=== PATIENT | female | born 1950 | race African-American/Black ===

== ENCOUNTER 2020-07-26 00:27 | Inpatient (IN) | payer MEDICARE ==
[~2020-07-26] VITALS: Ht 160 cm; Wt 54.4 kg
[2020-07-26] MEDS ORDERED: ACETAMINOPHEN 650 MG SUPP.RECT. ONE (00:33)
[2020-07-26] MEDS ORDERED: IV NORMAL SALINE 1000ML BAG 1,000 ML IV ONE (00:45)
[2020-07-26] MEDS ORDERED: ACETAMINOPHEN 650 MG SUPP.RECT. PR ONE (00:45)
[2020-07-26] MEDS ORDERED: cefTRIAXone IV Push 1 GM VIAL. IVP ONE (00:45)
[2020-07-26 01:15] LABS: BASO # 0.1 x10^3/uL (0.0-0.2); BASO % 1 % (0-3); EOS % 0 % (0-3); HEMATOCRIT 28.7 % (36.0-47.0); HEMOGLOBIN 9.3 g/dL (12.0-15.5); LYMPH # 0.6 x10^3/uL (1.0-4.8); LYMPH % 4 % (24-48); MEAN CORPUSCULAR HEMOGLOBIN 29 pg (25-35); MEAN CORPUSCULAR HGB CONC 33 g/dL (31-37); MEAN CORPUSCULAR VOLUME 90 fL (79-100); MONO # 0.7 x10^3/uL (0.0-1.1); MONO % 5 % (0-9); NEUT # 12.5 x10^3/uL (1.8-7.7); NEUT % 90 % (31-73); PLATELET COUNT 358 x10^3/uL (140-400); RED BLOOD COUNT 3.17 x10^6/uL (3.50-5.40); RED CELL DISTRIBUTION WIDTH 17.7 % (11.5-14.5); WHITE BLOOD COUNT 13.9 x10^3/uL (4.0-11.0)
--- NOTE | 2020-07-26 01:16 | RAD ---
XR CHEST 1V History: Reason: sob / Spl. Instructions: / History: Comparison: None. Findings: No consolidation or pleural effusion. Normal heart size. No pneumothorax. Impression: 1. No acute cardiopulmonary process. Electronically signed by: Son Fierro DO (07/26/2020 1:14 AM) [facility] [place]
[2020-07-26 01:17] LABS: BILIRUBIN,URINE NEGATIVE (NEG); CLARITY,URINE CLEAR; COLOR,URINE YELLOW; NITRITE,URINE NEGATIVE (NEG); PROTEIN,URINE 100 mg/dL (NEG-TRACE)
[2020-07-26] MEDS ORDERED: GABA600T7 PO (01:23)
[2020-07-26] MEDS ORDERED: GABA800T5 PO (01:23)
[2020-07-26 01:24] LABS: BACTERIA,URINE MANY /HPF (0-FEW); WBC,URINE >40 /HPF (0-4)
[2020-07-26] MEDS ORDERED: KETOROLAC 30 MG/ML VIAL. IVP ONE (02:45)
--- NOTE | 2020-07-26 02:48 | ED.ADGEN ---
General Adult EDM: Chief Complaint: ALTERED MENTAL STATUS HPI: HPI: Patient is a 70 year old female who presents to the Emergency Room complaining of fever and confusion for two days. Daughter states that yesterday she started becoming more quiet and then by tonight she wouldn't answer questions at all. She has been very confused. They noticed she was having fevers this evening. Patient has no complaints. They deny any SOB, chest pain, abdominal pain, vomiting, diarrhea. Review of Systems: Review of Systems: Complete ROS is negative unless otherwise documented in HPI Current Medications: Current Medications Medications (Trade) Dose Ordered Sig/Bri Start Time Stop Time Status Last Admin Dose Admin Acetaminophen (Tylenol Supp) 650 mg STK-MED ONCE 07/26/20 00:33 07/26/20 00:34 DC Ceftriaxone Sodium (Rocephin) 1 gm 1X ONCE 07/26/20 00:45 07/26/20 00:46 DC 07/26/20 02:39 1 GM Sodium Chloride 1,000 ml @ 1,000 mls/hr 1X ONCE 07/26/20 00:45 07/26/20 01:44 DC 07/26/20 01:28 1,000 MLS/HR Allergies: Allergies: Allergies Coded Allergies Type Severity Reaction Last Updated Verified No Known Drug Allergies 04/27/20 No Physical Exam: PE: General: Awake, alert, NAD. Well Nourished, well hydrated. Cooperative HEENT: Atraumatic, EOMI, PERRL, airway patent, moist oral mucosa Neck: Supple, trachea midline Respiratory: CTA bilaterally, normal effort, no wheezing/crackles CV: tachycardic, no murmur, cap refill <2 GI: Soft, nondistended, nontender, no masses MSK: No obvious deformities Skin: Warm, dry, intact Neuro: A&O x1, speech limited, sensory and motor grossly intact, no focal deficits Psych: Normal affect, normal mood, not suicidal or homicidal Current Patient Data: Labs: Laboratory Tests Test 07/26/20 00:35 07/26/20 00:41 Urine Collection Type U cath Urine Color Yellow Urine Clarity Clear Urine pH 6.0 (<5.0-8.0) Urine Specific [place] 1.015 (1.000-1.030) Urine Protein 100 mg/dL (NEG-TRACE) Urine Glucose (UA) 250 mg/dL (NEG) Urine Ketones (Stick) 15 mg/dL (NEG) Urine Blood Moderate (NEG) Urine Nitrite Negative (NEG) Urine Bilirubin Negative (NEG) Urine Urobilinogen Dipstick 1.0 mg/dL (0.2 mg/dL) Urine Leukocyte Esterase Small (NEG) Urine RBC 6-10 /HPF (0-2) Urine WBC >40 /HPF (0-4) Urine Squamous Epithelial Cells Occ /LPF Urine Bacteria Many /HPF (0-FEW) Urine Mucus Mod /LPF White Blood Count 13.9 x10^3/uL (4.0-11.0) H Red Blood Count 3.17 x10^6/uL (3.50-5.40) L Hemoglobin 9.3 g/dL (12.0-15.5) L Hematocrit 28.7 % (36.0-47.0) L Mean Corpuscular Volume 90 fL (79-100) Mean Corpuscular Hemoglobin 29 pg (25-35) Mean Corpuscular Hemoglobin Concent 33 g/dL (31-37) Red Cell Distribution Width 17.7 % (11.5-14.5) H Platelet Count 358 x10^3/uL (140-400) Neutrophils (%) (Auto) 90 % (31-73) H Lymphocytes (%) (Auto) 4 % (24-48) L Monocytes (%) (Auto) 5 % (0-9) Eosinophils (%) (Auto) 0 % (0-3) Basophils (%) (Auto) 1 % (0-3) Neutrophils # (Auto) 12.5 x10^3/uL (1.8-7.7) H Lymphocytes # (Auto) 0.6 x10^3/uL (1.0-4.8) L Monocytes # (Auto) 0.7 x10^3/uL (0.0-1.1) Eosinophils # (Auto) 0.0 x10^3/uL (0.0-0.7) Basophils # (Auto) 0.1 x10^3/uL (0.0-0.2) Platelet Estimate Pending Laboratory Tests 07/26/20 00:41 EKG: EKG: [] Heart Score: C/O Chest Pain: N/A Risk Factors: Risk Factors: DM, Current or recent (<one month) smoker, HTN, HLP, family history of CAD, obesity. Risk Scores: Score 0 - 3: 2.5% MACE over next 6 weeks - Discharge Home Score 4 - 6: 20.3% MACE over next 6 weeks - Admit for Clinical Observation Score 7 - 10: 72.7% MACE over next 6 weeks - Early Invasive Strategies Radiology/Procedures: Radiology/Procedures: [] Course & Med Decision Making: Course & Med Decision Making Pertinent Labs and Imaging studies reviewed. (See chart for details) Patient presents to the ED c/o confusion and fever.Upon arrival, patient meets SIRs criteria and their presentation is concerning for possible sepsis. Code sepsis was set off in triage. Sepsis work up including CBC, BMP, CXR, UA, blood cx were ordered. Patient was given antibiotics after cx were drawn. At this time patient is not show signs of shock and does not need the 30 ml/kg fluid bolus. Patient has had UTIs with delirium previously. She was given tylenol for fever. She was given 1L NS bolus. Patient has UTI with sepsis and delirium. She will be admitted to the hospital for further care. Dragon Disclaimer: Dragon Disclaimer: This electronic medical record was generated, in whole or in part, using a voice recognition dictation system. Departure Departure Impression: Primary Impression: Sepsis Additional Impressions: UTI (urinary tract infection) Delirium Disposition: ADMITTED INPATIENT Condition: GUARDED Referrals: LES ARIAS MD (PCP) Problem Qualifiers KINA PRASAD MD Jul 26, 2020 02:48
[2020-07-26 03:18] LABS: CALCIUM 8.9 mg/dL (8.5-10.1); GFR 66.7; POTASSIUM 5.4 mmol/L (3.5-5.1)
[2020-07-26 03:24] LABS: ALBUMIN 2.2 g/dL (3.4-5.0); ALBUMIN/GLOBULIN RATIO 0.4 (1.0-1.7); MAGNESIUM 1.2 mg/dL (1.8-2.4); TOTAL BILIRUBIN 1.4 mg/dL (0.2-1.0); TOTAL PROTEIN 7.2 g/dL (6.4-8.2)
[2020-07-26 04:32] LABS: % LYMPHS 7 % (24-48); % SEGS 93 % (35-66); ANISOCYTOSIS SLIGHT; PLT ESTIMATE ADEQUATE (ADEQUATE); POLYCHROMASIA SLIGHT
[2020-07-26 05:29] VITALS: BP 126/55
[2020-07-26] MEDS ORDERED: METO-239 PO (06:05)
[2020-07-26] MEDS ORDERED: FOLI0.4T5 PO (06:05)
[2020-07-26] MEDS ORDERED: methotrexate (06:05)
[2020-07-26] MEDS ORDERED: FERR-36 PO (06:05)
[2020-07-26] MEDS ORDERED: LISI20TA18 PO (06:05)
[2020-07-26] MEDS ORDERED: PANT20TA2 PO (06:05)
[2020-07-26] MEDS ORDERED: FURO-69 PO (06:05)
[2020-07-26] MEDS ORDERED: prednisone (06:05)
[2020-07-26] MEDS ORDERED: METF500T16 PO (06:05)
[2020-07-26 07:00] VITALS: BP 116/46
[2020-07-26] MEDS ORDERED: DEXTROSE 50% 25 GM / 50ML DISP.SYRIN. IV PRN (08:30)
--- NOTE | 2020-07-26 08:48 | PDOC1 ---
History and Physical Date of Admission Date of Admission DATE: 07/26/20 TIME: 08:41 Identification/Chief Complaint Chief Complaint confusion, lethargy Source Source: Chart review, Patient History of Present Illness History of Present Illness Ms. Schaefer is a 70 year old female admit last night for marked fever and confusion, that had worsened over two days. her Daughter provided history last night and is at work today. PT was having fevers at home, then had a temp of 103 here. The patient was not talking in the ER< and is now conversant and oriented, but tired and lethargic. Only intervention is IV fluid and rocephin. She has been very confused 2 days, and feels better this AM and wants to eat. she is retired from [employer], Im not sure if she means the [employer]! Past Medical History Cardiovascular: CHF, HTN Pulmonary: No pertinent hx Musculoskeletal: low back pain ENT: No pertinent hx Renal/: No pertinent hx Endocrine: Diabetes Family History Family History: No Significant Social History Smoke: No (wants nicotine patch) ALCOHOL: none Drugs: None Current Problem List Problem List Problems Medical Problems: (1) Delirium Status: Acute (2) Sepsis Status: Acute (3) UTI (urinary tract infection) Status: Acute Current Medications Current Medications Current Medications Ceftriaxone Sodium (Rocephin) 1 gm 1X ONCE IVP Last administered on 07/26/20at 02:39; Start 07/26/20 at 00:45; Stop 07/26/20 at 00:46; Status DC Sodium Chloride 1,000 ml @ 1,000 mls/hr 1X ONCE IV Last administered on at 01:28; Start 07/26/20 at 00:45; Stop 07/26/20 at 01:44; Status DC Acetaminophen (Tylenol Supp) 650 mg 1X ONCE RI Last administered on 07/26/20at 00:45; Start 07/26/20 at 00:45; Stop 07/26/20 at 00:46; Status DC Acetaminophen (Tylenol Supp) 650 mg STK-MED ONCE .ROUTE ; Start 07/26/20 at 00:33; Stop 07/26/20 at 00:34; Status DC Ketorolac Tromethamine (Toradol 30mg Vial) 30 mg 1X ONCE IVP Last administered on 07/26/20at 02:39; Start 07/26/20 at 02:45; Stop 07/26/20 at 02:46; Status DC Magnesium Sulfate 50 ml @ 25 mls/hr 1X ONCE IV ; Start 07/26/20 at 09:00; Stop 07/26/20 at 10:59 Insulin Human Lispro (HumaLOG) 0-7 UNITS TIDWMEALS SQ ; Start 07/26/20 at 12:00 Dextrose (Dextrose 50%-Water Syringe) 12.5 gm PRN Q15MIN PRN IV SEE COMMENTS; Start 07/26/20 at 08:30 Ceftriaxone Sodium (Rocephin) 1 gm Q24H IVP ; Start 07/26/20 at 21:00 Ringer's Solution 1,000 ml @ 100 mls/hr Q10H IV ; Start 07/26/20 at 08:30 Active Scripts Active Reported [prednisone] Metoprolol Succinate ( Xl ) (Metoprolol Succinate) 25 Mg Tab.er.24h 1 Tab PO DAILY Lasix (Furosemide) 20 Mg Tablet 1 Tab PO DAILY 30 Days Folic Acid 0.4 Mg Tablet 0.4 Mg PO DAILY Iron (Ferrous Sulfate) 325 Mg Tablet 1 Tab PO DAILY 30 Days Lisinopril 20 Mg Tablet 1 Tab PO DAILY [methotrexate] Protonix (Pantoprazole Sodium) 20 Mg Tablet.dr 1 Tab PO DAILY Metformin Hcl 500 Mg Tablet 500 Mg PO DAILY Gabapentin 600 Mg Tablet 100 Mg PO TID Allergies Allergies: Coded Allergies: No Known Drug Allergies (Unverified , 04/27/20) ROS General: YES: Chills, Fatigue, Malaise PSYCHOLOGICAL ROS: YES: Sleep disturbances; No: Anxiety, Behavioral Disorder, Concentration difficultie, Decreased libido, Depression, Disorientation, Hallucinations, Hostility, Irritablity, Memory difficulties, Mood Swings, Obsessive thoughts, Other Eyes: No Blurry vision, No Decreased vision, No Double vision, No Dry eyes, No Excessive tearing, No Eye Pain, No Itchy Eyes, No Loss of vision, No Photophobi a, No Scotomata, No Uses contacts, No Uses glasses, No Other HEENT: No: Heacaches, Visual Changes, Hearing change, Nasal congestion, Nasal discharge, Oral lesions, Sinus pain, Sore Throat, Epistaxis, Sneezing, Snoring, Tinnitus, Vertigo, Vocal changes, Other Respiratory: No: Cough, Hemoptysis, Orthopnea, Pleuritic Pain, Shortness of breath, SOB with excertion, Sputum Changes, Stridor, Tachypnea, Wheezing, Other Cardiovascular: No Chest Pain, No Palpitations, No Orthopnea, No Paroxysmal Noc. Dyspnea, No Edema, No Lt Headedness, No Other Gastrointestinal: Yes Nausea; No Vomiting, No Abdominal Pain, No Diarrhea, No Constipation, No Melena, No Hematochezia, No Other Genitourinary: No Dysuria, No Frequency, No Incontinence, No Hematuria, No Retention, No Discharge, No Urgency, No Pain, No Flank Pain, No Other, No , No , No , No , No , No , No Musculoskeletal: Yes Muscular Weakness; No Gait Disturbance, No Joint Pain, No Joint Stiffness, No Joint Swelling, No Muscle Pain, No Pain In:, No Swelling In:, No Other Neurological: Yes Confusion Skin: No Dry Skin, No Eczema, No Hair Changes, No Lumps, No Mole Changes, No Mottling, No Nail Changes, No Pruritus, No Rash, No Skin Lesion Changes, No Other, No Acne Physical Exam Physical Exam lethargic, does not sit up, General: Alert, Oriented X3, Cooperative HEENT: Atraumatic, PERRLA Lungs: Clear to auscultation Heart: S1S2, no murmurs Abdomen: Normal bowel sounds, Soft Extremities: No clubbing, No edema Skin: No rashes, No significant lesion Neuro: Normal speech, Normal tone, Sensation intact Psych/Mental Status: Mood NL, Other (flat affect, withdrawn, fatigued appearance) Vitals Vitals Vital Signs Date Time Temp Pulse Resp B/P (MAP) Pulse Ox O2 Delivery O2 Flow Rate FiO2 07/26/20 07:00 99.3 80 16 116/46 (69) 96 Room Air 99.3 Labs Labs Laboratory Tests Test 07/26/20 00:35 07/26/20 00:41 07/26/20 02:37 Urine Collection Type U cath Urine Color Yellow Urine Clarity Clear Urine pH 6.0 (<5.0-8.0) Urine Specific [place] 1.015 (1.000-1.030) Urine Protein 100 mg/dL (NEG-TRACE) Urine Glucose (UA) 250 mg/dL (NEG) Urine Ketones (Stick) 15 mg/dL (NEG) Urine Blood Moderate (NEG) Urine Nitrite Negative (NEG) Urine Bilirubin Negative (NEG) Urine Urobilinogen Dipstick 1.0 mg/dL (0.2 mg/dL) Urine Leukocyte Esterase Small (NEG) Urine RBC 6-10 /HPF (0-2) Urine WBC >40 /HPF (0-4) Urine Squamous Epithelial Cells Occ /LPF Urine Bacteria Many /HPF (0-FEW) Urine Mucus Mod /LPF White Blood Count 13.9 x10^3/uL (4.0-11.0) Red Blood Count 3.17 x10^6/uL (3.50-5.40) Hemoglobin 9.3 g/dL (12.0-15.5) Hematocrit 28.7 % (36.0-47.0) Mean Corpuscular Volume 90 fL (79-100) Mean Corpuscular Hemoglobin 29 pg (25-35) Mean Corpuscular Hemoglobin Concent 33 g/dL (31-37) Red Cell Distribution Width 17.7 % (11.5-14.5) Platelet Count 358 x10^3/uL (140-400) Neutrophils (%) (Auto) 90 % (31-73) Lymphocytes (%) (Auto) 4 % (24-48) Monocytes (%) (Auto) 5 % (0-9) Eosinophils (%) (Auto) 0 % (0-3) Basophils (%) (Auto) 1 % (0-3) Neutrophils # (Auto) 12.5 x10^3/uL (1.8-7.7) Lymphocytes # (Auto) 0.6 x10^3/uL (1.0-4.8) Monocytes # (Auto) 0.7 x10^3/uL (0.0-1.1) Eosinophils # (Auto) 0.0 x10^3/uL (0.0-0.7) Basophils # (Auto) 0.1 x10^3/uL (0.0-0.2) Segmented Neutrophils % 93 % (35-66) Lymphocytes % 7 % (24-48) Platelet Estimate Adequate (ADEQUATE) Polychromasia Slight Anisocytosis Slight Sodium Level 134 mmol/L (136-145) Potassium Level 5.4 mmol/L (3.5-5.1) Chloride Level 100 mmol/L (98-107) Carbon Dioxide Level 19 mmol/L (21-32) Anion Gap 15 (6-14) Blood Urea Nitrogen 30 mg/dL (7-20) Creatinine 1.0 mg/dL (0.6-1.0) Estimated GFR (Cockcroft-Gault) 66.7 BUN/Creatinine Ratio 30 (6-20) Glucose Level 162 mg/dL (70-99) Calcium Level 8.9 mg/dL (8.5-10.1) Magnesium Level 1.2 mg/dL (1.8-2.4) Total Bilirubin 1.4 mg/dL (0.2-1.0) Aspartate Amino Transf (AST/SGOT) 55 U/L (15-37) Alanine Aminotransferase (ALT/SGPT) 19 U/L (14-59) Alkaline Phosphatase 190 U/L (46-116) Total Protein 7.2 g/dL (6.4-8.2) Albumin 2.2 g/dL (3.4-5.0) Albumin/Globulin Ratio 0.4 (1.0-1.7) Laboratory Tests Test 07/26/20 00:35 07/26/20 00:41 07/26/20 02:37 Urine Collection Type U cath Urine Color Yellow Urine Clarity Clear Urine pH 6.0 (<5.0-8.0) Urine Specific [place] 1.015 (1.000-1.030) Urine Protein 100 mg/dL (NEG-TRACE) Urine Glucose (UA) 250 mg/dL (NEG) Urine Ketones (Stick) 15 mg/dL (NEG) Urine Blood Moderate (NEG) Urine Nitrite Negative (NEG) Urine Bilirubin Negative (NEG) Urine Urobilinogen Dipstick 1.0 mg/dL (0.2 mg/dL) Urine Leukocyte Esterase Small (NEG) Urine RBC 6-10 /HPF (0-2) Urine WBC >40 /HPF (0-4) Urine Squamous Epithelial Cells Occ /LPF Urine Bacteria Many /HPF (0-FEW) Urine Mucus Mod /LPF White Blood Count 13.9 x10^3/uL (4.0-11.0) Red Blood Count 3.17 x10^6/uL (3.50-5.40) Hemoglobin 9.3 g/dL (12.0-15.5) Hematocrit 28.7 % (36.0-47.0) Mean Corpuscular Volume 90 fL (79-100) Mean Corpuscular Hemoglobin 29 pg (25-35) Mean Corpuscular Hemoglobin Concent 33 g/dL (31-37) Red Cell Distribution Width 17.7 % (11.5-14.5) Platelet Count 358 x10^3/uL (140-400) Neutrophils (%) (Auto) 90 % (31-73) Lymphocytes (%) (Auto) 4 % (24-48) Monocytes (%) (Auto) 5 % (0-9) Eosinophils (%) (Auto) 0 % (0-3) Basophils (%) (Auto) 1 % (0-3) Neutrophils # (Auto) 12.5 x10^3/uL (1.8-7.7) Lymphocytes # (Auto) 0.6 x10^3/uL (1.0-4.8) Monocytes # (Auto) 0.7 x10^3/uL (0.0-1.1) Eosinophils # (Auto) 0.0 x10^3/uL (0.0-0.7) Basophils # (Auto) 0.1 x10^3/uL (0.0-0.2) Segmented Neutrophils % 93 % (35-66) Lymphocytes % 7 % (24-48) Platelet Estimate Adequate (ADEQUATE) Polychromasia Slight Anisocytosis Slight Sodium Level 134 mmol/L (136-145) Potassium Level 5.4 mmol/L (3.5-5.1) Chloride Level 100 mmol/L (98-107) Carbon Dioxide Level 19 mmol/L (21-32) Anion Gap 15 (6-14) Blood Urea Nitrogen 30 mg/dL (7-20) Creatinine 1.0 mg/dL (0.6-1.0) Estimated GFR (Cockcroft-Gault) 66.7 BUN/Creatinine Ratio 30 (6-20) Glucose Level 162 mg/dL (70-99) Calcium Level 8.9 mg/dL (8.5-10.1) Magnesium Level 1.2 mg/dL (1.8-2.4) Total Bilirubin 1.4 mg/dL (0.2-1.0) Aspartate Amino Transf (AST/SGOT) 55 U/L (15-37) Alanine Aminotransferase (ALT/SGPT) 19 U/L (14-59) Alkaline Phosphatase 190 U/L (46-116) Total Protein 7.2 g/dL (6.4-8.2) Albumin 2.2 g/dL (3.4-5.0) Albumin/Globulin Ratio 0.4 (1.0-1.7) VTE Prophylaxis Ordered VTE Prophylaxis Devices: No VTE Pharmacological Prophylaxi: Yes Assessment/Plan Assessment/Plan acute metabolic encephalopathy, labs change, acidosis and infection sepsis , better after given rocephin one time last night, vitals better UTI, Dm2, hold metofrmin for acidosis hyperkalemia, hold lisinopril CHF, gentle fluids, appears dry, BUN up weakness, debillity, consult PT, Justifications for Admission Other Justification ISABEL AMAYA MD Jul 26, 2020 08:48
[2020-07-26] MEDS: IV RINGERS,LACTATED 1000ML 1,000 ML IV SCH ×2 (08:50→22:15)
[2020-07-26] MEDS ORDERED: MAGNESIUM SULFATE 2GM 50 ML IV ONE (09:00)
[2020-07-26] MEDS: FERROUS SULFATE 325 MG TABLET. PO SCH (09:37)
[2020-07-26] MEDS: ENOXAPARIN 40 MG/0.4 ML SYRINGE. SQ SCH (09:38)
[2020-07-26] MEDS: FOLIC ACID 1 MG TABLET. PO SCH (09:38)
[2020-07-26] MEDS: PANTOPRAZOLE 40 MG TABLET.DR. PO SCH (09:38)
[2020-07-26] MEDS: METOPROLOL SUCC 24HR ER 25 MG TAB.ER.24H. PO SCH (09:38)
[2020-07-26] MEDS: NICOTINE 7MG PATCH. TD SCH (09:38)
[2020-07-26] MEDS ORDERED: DORZ10DR6 EACHEYE (09:58)
[2020-07-26] MEDS ORDERED: LATA2.5D2 OU (09:58)
--- NOTE | 2020-07-26 10:50 | NUR ---
SW following. Discussed with RN, pt from home with daughter, room air, ada diet. PT ordered. Per Rn, pt uses a walker at home. RN advised no SW needs at this time. SW will continue to follow.
[2020-07-26 11:00] VITALS: BP 135/113
[2020-07-26] MEDS: INSULIN LISPRO 300 UNITS/3 ML VIAL. SQ SCH ×2 (11:51→17:00)
[2020-07-26] MEDS: DORZOLAMIDE 2% OPHTH SOLUTION 10ML BOTTLE. OU SCH ×2 (12:06→22:15)
[2020-07-26] MEDS ORDERED: PIP/TAZO PER PHARMACY MC PRN (12:45)
[2020-07-26 15:00] VITALS: BP 175/65
[2020-07-26] MEDS: PIPERACILLIN/TAZOBACTAM 3.375 GM in IV NORMAL SALINE 50ML 50 ML IV SCH ×2 (17:21→23:52)
[2020-07-26] MEDS: ACETAMINOPHEN 325 MG TABLET. PO PRN ×2 (17:24→23:38)
[2020-07-26 19:00] VITALS: BP 148/53
[2020-07-26] MEDS ORDERED: cefTRIAXone IV Push 1 GM VIAL. IVP SCH (21:00)
[2020-07-26] MEDS: LATANOPROST 0.005% OPHTH SOLUTION 2.5ML BOTTLE. OU SCH (22:15)
[2020-07-26 23:00] VITALS: BP 179/73
[2020-07-27 03:00] VITALS: BP 141/63
[2020-07-27 04:20] LABS: BASO % 0 % (0-3); EOS % 0 % (0-3); HEMATOCRIT 24.2 % (36.0-47.0); HEMOGLOBIN 7.9 g/dL (12.0-15.5); LYMPH # 0.5 x10^3/uL (1.0-4.8); LYMPH % 7 % (24-48); MEAN CORPUSCULAR HEMOGLOBIN 30 pg (25-35); MEAN CORPUSCULAR HGB CONC 33 g/dL (31-37); MEAN CORPUSCULAR VOLUME 90 fL (79-100); MONO # 0.3 x10^3/uL (0.0-1.1); MONO % 4 % (0-9); NEUT # 7.1 x10^3/uL (1.8-7.7); NEUT % 90 % (31-73); PLATELET COUNT 252 x10^3/uL (140-400); RED BLOOD COUNT 2.69 x10^6/uL (3.50-5.40); RED CELL DISTRIBUTION WIDTH 17.5 % (11.5-14.5)
[2020-07-27] MEDS: IV RINGERS,LACTATED 1000ML 1,000 ML IV SCH ×2 (04:30→17:04)
[2020-07-27 05:31] LABS: CALCIUM 8.3 mg/dL (8.5-10.1); CREATININE 1.1 mg/dL (0.6-1.0); GFR 59.8; POTASSIUM 3.7 mmol/L (3.5-5.1)
[2020-07-27 07:00] VITALS: BP 163/73
[2020-07-27] MEDS: PIPERACILLIN/TAZOBACTAM 3.375 GM in IV NORMAL SALINE 50ML 50 ML IV SCH ×4 (07:15→23:15)
[2020-07-27] MEDS: PANTOPRAZOLE 40 MG TABLET.DR. PO SCH (07:41)
[2020-07-27] MEDS: ACETAMINOPHEN 325 MG TABLET. PO PRN ×2 (07:42→23:15)
[2020-07-27] MEDS: INSULIN LISPRO 300 UNITS/3 ML VIAL. SQ SCH ×3 (07:47→17:00)
[2020-07-27] MEDS ORDERED: VANCOMYCIN PER PHARMACY MC PRN (09:15)
[2020-07-27] MEDS: FERROUS SULFATE 325 MG TABLET. PO SCH (09:45)
[2020-07-27] MEDS: NICOTINE 7MG PATCH. TD SCH (09:45)
[2020-07-27] MEDS: METOPROLOL SUCC 24HR ER 25 MG TAB.ER.24H. PO SCH (09:45)
[2020-07-27] MEDS: FOLIC ACID 1 MG TABLET. PO SCH (09:45)
[2020-07-27] MEDS: ENOXAPARIN 40 MG/0.4 ML SYRINGE. SQ SCH (09:49)
[2020-07-27] MEDS: DORZOLAMIDE 2% OPHTH SOLUTION 10ML BOTTLE. OU SCH ×2 (09:56→21:56)
[2020-07-27] MEDS ORDERED: VANCOMYCIN 1.25 GM in IV NORMAL SALINE 250ML 250 ML IV ONE (10:00)
--- NOTE | 2020-07-27 10:29 | PDOC ---
[employer] PROGRESS NOTE Date of Service DOS: DATE: 07/27/20 TIME: 10:27 Chief Complaint Chief Complaint acute metabolic encephalopathy, sepsis bacteremia 05/20, gm neg rods, changed to zosyn last night, still having fevers today UTI, Dm2, hold metofrmin for acidosis hyperkalemia, hold lisinopril CHF, gentle fluids, appears dry, BUN up weakness, debillity, consult PT, History of Present Illness History of Present Illness more alert this AM, eating well, good str, feels improved, having high fevers still, I added Vanco, despite cx evidence of GRAM NEGATIVE RODS, 05/20 Vitals/I&O Vitals/I&O: Vital Signs Date Time Temp Pulse Resp B/P (MAP) Pulse Ox O2 Delivery O2 Flow Rate FiO2 07/27/20 09:45 95 163/73 07/27/20 07:30 Room Air 07/27/20 07:00 102.0 20 96 102.0 I & O 0 07/26/20 07/26/20 07/27/20 14:59 22:59 06:59 Intake Total 50 ml 1200 ml 50 ml Balance 50 ml 1200 ml 50 ml Physical Exam General: Alert, Oriented X3, Cooperative Abdomen: Normal bowel sounds, Soft Extremities: No clubbing, No edema Skin: No rashes, No significant lesion Labs Labs: Laboratory Tests Test 07/26/20 16:55 07/26/20 20:32 07/27/20 04:00 07/27/20 07:45 Glucose (Fingerstick) 163 mg/dL (70-99) 115 mg/dL (70-99) 109 mg/dL (70-99) White Blood Count 8.0 x10^3/uL (4.0-11.0) Red Blood Count 2.69 x10^6/uL (3.50-5.40) Hemoglobin 7.9 g/dL (12.0-15.5) Hematocrit 24.2 % (36.0-47.0) Mean Corpuscular Volume 90 fL (79-100) Mean Corpuscular Hemoglobin 30 pg (25-35) Mean Corpuscular Hemoglobin Concent 33 g/dL (31-37) Red Cell Distribution Width 17.5 % (11.5-14.5) Platelet Count 252 x10^3/uL (140-400) Neutrophils (%) (Auto) 90 % (31-73) Lymphocytes (%) (Auto) 7 % (24-48) Monocytes (%) (Auto) 4 % (0-9) Eosinophils (%) (Auto) 0 % (0-3) Basophils (%) (Auto) 0 % (0-3) Neutrophils # (Auto) 7.1 x10^3/uL (1.8-7.7) Lymphocytes # (Auto) 0.5 x10^3/uL (1.0-4.8) Monocytes # (Auto) 0.3 x10^3/uL (0.0-1.1) Eosinophils # (Auto) 0.0 x10^3/uL (0.0-0.7) Basophils # (Auto) 0.0 x10^3/uL (0.0-0.2) Sodium Level 135 mmol/L (136-145) Potassium Level 3.7 mmol/L (3.5-5.1) Chloride Level 103 mmol/L (98-107) Carbon Dioxide Level 22 mmol/L (21-32) Anion Gap 10 (6-14) Blood Urea Nitrogen 26 mg/dL (7-20) Creatinine 1.1 mg/dL (0.6-1.0) Estimated GFR (Cockcroft-Gault) 59.8 Glucose Level 120 mg/dL (70-99) Calcium Level 8.3 mg/dL (8.5-10.1) Assessment and Plan Assessmemt and Plan Problems Medical Problems: (1) Delirium Status: Acute (2) Sepsis Status: Acute (3) UTI (urinary tract infection) Status: Acute Comment Review of Relevant I have reviewed the following items stephen (where applicable) has been applied. Medications: Current Medications Medications (Trade) Dose Ordered Sig/Bri Route PRN Reason Start Time Stop Time Status Last Admin Dose Admin Dorzolamide HCl (Trusopt) 1 drop BID OU 07/26/20 12:00 07/27/20 09:56 Latanoprost (Xalatan) 1 drop QHS OU 07/26/20 21:00 07/26/20 22:15 Piperacillin Sod/ Tazobactam Sod 3.375 gm/Sodium Chloride 50 ml @ 100 mls/hr Q6HRS IV 07/26/20 18:00 07/27/20 07:15 Acetaminophen (Tylenol) 650 mg PRN Q6HRS PRN PO MILD PAIN / TEMP > 100.3'F 07/26/20 17:30 07/27/20 07:42 Vancomycin HCl 1.25 gm/Sodium Chloride 250 ml @ 166.667 mls/hr 1X ONCE IV 07/27/20 10:00 07/27/20 11:29 07/27/20 09:44 Justifications for Admission Other Justification ISABEL AMAYA MD Jul 27, 2020 10:29
[2020-07-27 11:00] VITALS: BP 148/58
--- NOTE | 2020-07-27 11:50 | NUR ---
SW following. Discussed with RN, pt from home with daughter, room air, ada diet. PT recommending SNF (SW requested OT be ordered). URVASHI met with pt, pt agreeable to SNF, requested SW call her daughter, Doreen to see which facility she should go to. URVASHI spoke with Doreen (ph: [phone]), Doreen requested referral be faxed to [facility]. Pt has positive blood cultures. URVASHI faxed referral to [facility] sans OT note, awaiting acceptance deciision - [facility] likely won't submit for auth without OT note. URVASHI will continue to follow.
[2020-07-27] MEDS: LACTOBACILLUS RHAMNOSUS GG 1 CAPSULE. PO SCH ×2 (12:28→21:55)
[2020-07-27 15:00] VITALS: BP 139/65
[2020-07-27 19:00] VITALS: BP 172/74
[2020-07-27] MEDS: LATANOPROST 0.005% OPHTH SOLUTION 2.5ML BOTTLE. OU SCH (21:56)
--- NOTE | 2020-07-27 22:21 | CONS ---
DATE OF CONSULTATION: 07/27/2020 REFERRING PHYSICIAN: Dr. Hidalgo. REASON FOR CONSULTATION: Gram-negative kvng bacteremia. HISTORY OF PRESENT ILLNESS: This is a 70-year-old -[place] female who was admitted with fever and confusion, had been happening for 2 days according to the daughter. The patient lives with her daughter. The patient was noted to have 103 fever in the ER, 13.9 WBC and the blood culture is positive with gram-negative rods. The patient did have abnormal urinalysis with more than 40 wbc's. The patient is now alert and awake. The patient does not remember what happened or why she came to the hospital, but she says she is feeling better. She denies any nausea, vomiting, or diarrhea. She denies any chest pain, shortness of breath, abdominal pain, or back pain. PAST MEDICAL HISTORY: Positive for arthritis, diabetes, anemia, cardiac disorder and she has weakness in the leg as she uses a walker at home normally. SOCIAL HISTORY: Negative for smoking, alcohol, or illicit drug use. CURRENT MEDICATIONS: The patient is on vancomycin and Zosyn. REVIEW OF SYSTEMS: As per HPI. All other systems reviewed are negative. PHYSICAL EXAMINATION: GENERAL: Awake female, not in distress. VITAL SIGNS: Temperature of 102.0, pulse 95, respirations 20, and blood pressure 163/73. HEENT: Both pupils are round and reacting. No conjunctival lesion, no lesion in the mouth. NECK: Supple. No JVP, no lymphadenopathy. LUNGS: Clear. HEART: S1, S2 regular. ABDOMEN: Soft, nontender. No organomegaly. EXTREMITIES: No edema or cyanosis. SKIN: Unremarkable. BACK: There is no CVA tenderness. NEUROLOGIC: The patient is alert, awake and able to communicate, though memory is poor. LABORATORY DATA: White count is down to 8000 from 13,900, hemoglobin 7.9, platelets are normal. BUN and creatinine are 26 and 1.1. Urinalysis showed more than 40 wbc's. Urine culture is pending. Blood culture is gram-negative kvng. Chest x-ray unremarkable. IMPRESSION: 1. Fever. 2. Leukocytosis. 3. Urinary tract infection with sepsis. 4. Gram-negative kvng bacteremia. 5. Diabetes. 6. Hypertension. RECOMMENDATIONS: Discontinue vancomycin. Continue Zosyn and supportive care. We will follow the cultures and continue to adjust. Thank you very much Dr. Hidalgo for giving me an opportunity to participate in this patient's care. JOSE RAFAEL DR: Leighann TID: [id number]
[2020-07-27 23:00] VITALS: BP 169/84
[2020-07-28 03:36] VITALS: BP 151/73
[2020-07-28] MEDS: IV RINGERS,LACTATED 1000ML 1,000 ML IV SCH ×3 (03:39→20:30)
[2020-07-28] MEDS: PIPERACILLIN/TAZOBACTAM 3.375 GM in IV NORMAL SALINE 50ML 50 ML IV SCH ×2 (06:33→12:05)
[2020-07-28 07:00] VITALS: BP 156/73
[2020-07-28] MEDS: INSULIN LISPRO 300 UNITS/3 ML VIAL. SQ SCH ×3 (08:00→17:00)
[2020-07-28] MEDS: LACTOBACILLUS RHAMNOSUS GG 1 CAPSULE. PO SCH ×2 (08:26→21:56)
[2020-07-28] MEDS: NICOTINE 7MG PATCH. TD SCH (08:26)
[2020-07-28] MEDS: FERROUS SULFATE 325 MG TABLET. PO SCH (08:27)
[2020-07-28] MEDS: METOPROLOL SUCC 24HR ER 25 MG TAB.ER.24H. PO SCH (08:27)
[2020-07-28] MEDS: FOLIC ACID 1 MG TABLET. PO SCH (08:27)
[2020-07-28] MEDS: PANTOPRAZOLE 40 MG TABLET.DR. PO SCH (08:27)
[2020-07-28] MEDS: ENOXAPARIN 40 MG/0.4 ML SYRINGE. SQ SCH (08:28)
[2020-07-28] MEDS: DORZOLAMIDE 2% OPHTH SOLUTION 10ML BOTTLE. OU SCH ×2 (08:28→22:52)
[2020-07-28 11:04] VITALS: BP 161/72
--- NOTE | 2020-07-28 11:27 | PDOC ---
Infectious Disease Note Subjective Subjective Feeling better Fever and chills last evening, Denies pain/N/V/D ROS ROS as mentioned above Vital Sign Vital Signs Vital Signs Date Time Temp Pulse Resp B/P (MAP) Pulse Ox O2 Delivery O2 Flow Rate FiO2 07/28/20 11:04 98.0 81 20 161/72 (101) 95 Room Air 98.0 Physical Exam PHYSICAL EXAM GENERAL: Propped up in bed, alert and smiling. HEENT: Normal conjunctivae, coated tongue, + dentures. NECK: Supple. No JVP, no lymphadenopathy. LUNGS: Clear. HEART: S1, S2 regular. ABDOMEN: Obese, soft, nontender. : no Moore EXTREMITIES: No edema or cyanosis. SKIN: No signs of rash BACK: There is no CVA tenderness. NEUROLOGIC: The patient is alert, communicative, forgetful PIV looks ok Labs Lab Laboratory Tests Test 07/27/20 11:45 07/27/20 17:24 07/27/20 20:45 07/28/20 07:19 Glucose (Fingerstick) 129 mg/dL (70-99) 125 mg/dL (70-99) 116 mg/dL (70-99) 101 mg/dL (70-99) Test 07/28/20 10:40 Glucose (Fingerstick) 100 mg/dL (70-99) Micro 07/26. Blood cultures ANTIMICROBIAL SUSCEPTIBILITY Final Comment NEG SUSAN 56 ESCHERICHIA COLI ANTIBIOTIC RESULT INTERPRETATION AMPICILLIN/SULBACTAM <=4/2 S AMIKACIN <=16 S AMPICILLIN <=8 S AMOXICILLIN/K CLAVULANATE <=8/4 S AZTREONAM <=4 S CEFTRIAXONE <=1 S CEFTAZIDIME <=1 S CEFOTAXIME <=2 S CEFOXITIN <=8 S CEFAZOLIN <=2 S CIPROFLOXACIN <=0.25 S CEFEPIME <=2 S CEFUROXIME <=4 S CEFTAZIDIME/AVIBACTAM <=4 S ERTAPENEM <=0.5 S GENTAMICIN <=2 S LEVOFLOXACIN <=0.5 S MEROPENEM <=1 S PIPERACILLIN/TAZOBACTAM <=8 S TRIMETHOPRIM/SULFAMETHOXAZOLE <=0.5/9.5 S TETRACYCLINE <=4 S TOBRAMYCIN <=2 S Objective Assessment GNR sepsis, 07/26. E. coli pansensitive UTI, POA Fever. Leukocytosis, better Diabetes. Hypertension. Plan Plan of Care Zosyn - deescalate soon Probiotics add urine culture to spec in lab Monitor lab values and temp Supportive care Feeling ok. Change to rocephin Attending Co-Sign Attending Co-Sign The patient was seen and interviewed as well as examined at the bedside. The chart was reviewed. The case was discussed. Agree with the plan of care. JULIO LARA APRN Jul 28, 2020 11:27 HAILE SALAZAR MD Jul 28, 2020 15:20
--- NOTE | 2020-07-28 13:26 | PDOC ---
[employer] PROGRESS NOTE Date of Service DOS: DATE: 07/28/20 TIME: 13:25 Chief Complaint Chief Complaint acute metabolic encephalopathy, sepsis bacteremia 05/20, gm neg rods, changed to zosyn last night, still having fevers today UTI, Dm2, hold metofrmin for acidosis hyperkalemia, hold lisinopril CHF, gentle fluids, appears dry, BUN up weakness, debillity, consult PT, History of Present Illness History of Present Illness more alert this AM, eating well, good str, feels improved, having high fevers still, I added Vanco, despite cx evidence of GRAM NEGATIVE RODS, 05/20 Vitals/I&O Vitals/I&O: Vital Signs Date Time Temp Pulse Resp B/P (MAP) Pulse Ox O2 Delivery O2 Flow Rate FiO2 07/28/20 11:04 98.0 81 20 161/72 (101) 95 Room Air 98.0 I & O 07/27/20 07/27/20 07/28/20 15:00 23:00 07:00 Intake Total 240 ml 50 ml Balance 240 ml 50 ml Physical Exam Physical Exam: GENERAL: Propped up in bed, alert and smiling. HEENT: Normal conjunctivae, coated tongue, + dentures. NECK: Supple. No JVP, no lymphadenopathy. LUNGS: Clear. HEART: S1, S2 regular. ABDOMEN: Obese, soft, nontender. : no Moore EXTREMITIES: No edema or cyanosis. SKIN: No signs of rash BACK: There is no CVA tenderness. NEUROLOGIC: The patient is alert, communicative, forgetful PIV looks ok General: Alert, Oriented X3, Cooperative Abdomen: Normal bowel sounds, Soft Extremities: No clubbing, No edema Skin: No rashes, No significant lesion Labs Labs: Laboratory Tests Test 07/27/20 17:24 07/27/20 20:45 07/28/20 07:19 07/28/20 10:40 Glucose (Fingerstick) 125 mg/dL (70-99) 116 mg/dL (70-99) 101 mg/dL (70-99) 100 mg/dL (70-99) Test 07/28/20 12:10 SARS-CoV-2 Antigen (Rapid) Negative (NEGATIVE) Assessment and Plan Assessmemt and Plan Problems Medical Problems: (1) Delirium Status: Acute (2) Sepsis Status: Acute (3) UTI (urinary tract infection) Status: Acute Comment Review of Relevant I have reviewed the following items stephen (where applicable) has been applied. Justifications for Admission Other Justification ISABEL AMAYA MD Jul 28, 2020 13:25
[2020-07-28 15:22] VITALS: BP 149/82
[2020-07-28] MEDS: cefTRIAXone IV Push 2 GM VIAL. IVP SCH (17:33)
[2020-07-28 19:00] VITALS: BP 166/75
[2020-07-28] MEDS: ACETAMINOPHEN 325 MG TABLET. PO PRN (21:56)
[2020-07-28] MEDS: LATANOPROST 0.005% OPHTH SOLUTION 2.5ML BOTTLE. OU SCH (22:52)
[2020-07-28 23:00] VITALS: BP 153/64
[2020-07-29] MEDS: IV RINGERS,LACTATED 1000ML 1,000 ML IV SCH ×2 (01:39→12:38)
[2020-07-29 03:21] VITALS: BP 163/68
[2020-07-29] MEDS: ACETAMINOPHEN 325 MG TABLET. PO PRN (05:05)
--- NOTE | 2020-07-29 06:24 | PDOC ---
Infectious Disease Note Subjective Subjective Feeling better Fever and chills last evening and sweats Had some back pain last night currently better. No change in urine character, Denies N/V/D ROS ROS o/w neg Vital Sign Vital Signs Vital Signs Date Time Temp Pulse Resp B/P (MAP) Pulse Ox O2 Delivery O2 Flow Rate FiO2 07/29/20 03:21 99.2 82 18 163/68 (99) 95 Room Air 99.2 Physical Exam PHYSICAL EXAM GENERAL: Propped up in bed, alert and smiling. HEENT: Normal conjunctivae, coated tongue, + dentures. NECK: Supple. No JVP, no lymphadenopathy. LUNGS: Clear. HEART: S1, S2 regular. ABDOMEN: Obese, soft, nontender. : no Omore - No CVA tenderness EXTREMITIES: No edema or cyanosis. SKIN: No signs of rash BACK: There is no CVA tenderness. NEUROLOGIC: The patient is alert, communicative, forgetful PIV looks ok Labs Lab Laboratory Tests Test 07/28/20 07:19 07/28/20 10:40 07/28/20 12:10 07/28/20 16:32 Glucose (Fingerstick) 101 mg/dL (70-99) 100 mg/dL (70-99) 126 mg/dL (70-99) SARS-CoV-2 Antigen (Rapid) Negative (NEGATIVE) Test 07/28/20 20:16 Glucose (Fingerstick) 137 mg/dL (70-99) Micro GRAM NEGATIVE RODS FINAL ID= [ESCHERICHIA COLI] ESCHERICHIA COLI ANTIMICROBIAL SUSCEPTIBILITY Final Comment NEG SUSAN 56 ESCHERICHIA COLI ANTIBIOTIC RESULT INTERPRETATION AMPICILLIN/SULBACTAM <=4/2 S AMIKACIN <=16 S AMPICILLIN <=8 S AMOXICILLIN/K CLAVULANATE <=8/4 S AZTREONAM <=4 S CEFTRIAXONE <=1 S CEFTAZIDIME <=1 S CEFOTAXIME <=2 S CEFOXITIN <=8 S CEFAZOLIN <=2 S CIPROFLOXACIN <=0.25 S CEFEPIME <=2 S CEFUROXIME <=4 S CEFTAZIDIME/AVIBACTAM <=4 S ERTAPENEM <=0.5 S GENTAMICIN <=2 S LEVOFLOXACIN <=0.5 S MEROPENEM <=1 S PIPERACILLIN/TAZOBACTAM <=8 S TRIMETHOPRIM/SULFAMETHOXAZOLE <=0.5/9.5 S TETRACYCLINE <=4 S TOBRAMYCIN <=2 S Unless otherwise specified, Testing Performed by: Microbiology 07/26/20 Blood Culture - Final, Complete Objective Assessment Ecoli sepsis, 07/26. E. coli pansensitive UTI, POA Fever over night. Leukocytosis, better Diabetes. Hypertension. Plan Plan of Care Zosyn Changed to rocephin- 07/28 Check renal U/S r/o pyelo - d/w nursing if persists may need CT Probiotics add urine culture to spec in lab Monitor lab values and temp Supportive care HAILE SALAZAR MD Jul 29, 2020 06:24
[2020-07-29 07:00] VITALS: BP 156/61
[2020-07-29] MEDS: INSULIN LISPRO 300 UNITS/3 ML VIAL. SQ SCH ×3 (08:00→16:43)
[2020-07-29 08:28] LABS: BASO % 0 % (0-3); EOS % 1 % (0-3); HEMATOCRIT 23.8 % (36.0-47.0); HEMOGLOBIN 7.9 g/dL (12.0-15.5); LYMPH # 0.6 x10^3/uL (1.0-4.8); LYMPH % 11 % (24-48); MEAN CORPUSCULAR HEMOGLOBIN 30 pg (25-35); MEAN CORPUSCULAR HGB CONC 33 g/dL (31-37); MEAN CORPUSCULAR VOLUME 90 fL (79-100); MONO # 0.5 x10^3/uL (0.0-1.1); MONO % 9 % (0-9); NEUT # 4.4 x10^3/uL (1.8-7.7); NEUT % 79 % (31-73); PLATELET COUNT 238 x10^3/uL (140-400); RED BLOOD COUNT 2.65 x10^6/uL (3.50-5.40); RED CELL DISTRIBUTION WIDTH 17.3 % (11.5-14.5); WHITE BLOOD COUNT 5.6 x10^3/uL (4.0-11.0)
--- NOTE | 2020-07-29 08:37 | RAD ---
US RENAL BILAT DATE: 07/29/2020 8:20 AM INDICATION: Pyelonephritis COMPARISON: None. TECHNIQUE: Multiple transverse longitudinal grayscale images of the kidneys and urinary bladder with color Doppler as appropriate. FINDINGS: The kidneys are normal in size and echogenicity. The right kidney measures 12.8 cm. The left kidney m easures 10.3 cm. No hydronephrosis, shadowing calculi or suspicious masses seen on either side. Left renal simple cyst measuring 2.1 cm, not requiring additional follow-up. The urinary bladder is low volume without focal abnormality. The visualized portions of the abdominal aorta and IVC are normal in caliber. IMPRESSION: Normal size and echogenicity of the kidneys. Electronically signed by: Darvin De La Garza MD (07/29/2020 8:35 AM) [id number]
[2020-07-29 08:41] LABS: CALCIUM 8.5 mg/dL (8.5-10.1); CREATININE 0.8 mg/dL (0.6-1.0); GFR 86.3; POTASSIUM 3.6 mmol/L (3.5-5.1)
[2020-07-29] MEDS: PANTOPRAZOLE 40 MG TABLET.DR. PO SCH (08:45)
[2020-07-29] MEDS: FERROUS SULFATE 325 MG TABLET. PO SCH (08:45)
[2020-07-29] MEDS: NICOTINE 7MG PATCH. TD SCH (08:45)
[2020-07-29] MEDS: METOPROLOL SUCC 24HR ER 25 MG TAB.ER.24H. PO SCH (08:46)
[2020-07-29] MEDS: DORZOLAMIDE 2% OPHTH SOLUTION 10ML BOTTLE. OU SCH ×2 (08:46→23:21)
[2020-07-29] MEDS: LACTOBACILLUS RHAMNOSUS GG 1 CAPSULE. PO SCH ×2 (08:46→23:21)
[2020-07-29] MEDS: FOLIC ACID 1 MG TABLET. PO SCH (08:46)
[2020-07-29] MEDS: ENOXAPARIN 40 MG/0.4 ML SYRINGE. SQ SCH (08:46)
[2020-07-29 11:00] VITALS: BP 129/64
[2020-07-29] MEDS: traMADol 50 MG TABLET PO PRN (11:53)
--- NOTE | 2020-07-29 12:53 | PDOC ---
[employer] PROGRESS NOTE Date of Service DOS: DATE: 07/29/20 TIME: 12:51 Chief Complaint Chief Complaint acute metabolic encephalopathy, sepsis bacteremia 4/, gm neg rods, changed to zosyn last night, still having fevers today UTI, Dm2, hold metofrmin for acidosis hyperkalemia, hold lisinopril CHF, gentle fluids, appears dry, BUN up weakness, debillity, consult PT, chronic weakness, left sided, poss prior CVA History of Present Illness History of Present Illness new back pain today, tylenol prn cont to str. on zosyn, ID following still weak no further fever, she seems to have had priro stroke, baseline weakness is high Vitals/I&O Vitals/I&O: Vital Signs Date Time Temp Pulse Resp B/P (MAP) Pulse Ox O2 Delivery O2 Flow Rate FiO2 07/29/20 12:27 99 Room Air 07/29/20 11:00 98.4 74 18 129/64 (85) 98.4 I & O 07/28/20 07/28/20 07/29/20 15:00 23:00 07:00 Intake Total 450 ml 200 ml Balance 450 ml 200 ml Physical Exam Physical Exam: GENERAL: Propped up in bed, alert and smiling. HEENT: Normal conjunctivae, coated tongue, + dentures. NECK: Supple. No JVP, no lymphadenopathy. LUNGS: Clear. HEART: S1, S2 regular. ABDOMEN: Obese, soft, nontender. : no Moore - No CVA tenderness EXTREMITIES: No edema or cyanosis. SKIN: No signs of rash BACK: There is no CVA tenderness. NEUROLOGIC: The patient is alert, communicative, forgetful PIV looks ok General: Alert, Oriented X3, Cooperative Abdomen: Normal bowel sounds, Soft Extremities: No clubbing, No edema Skin: No rashes, No significant lesion Labs Labs: Laboratory Tests Test 07/28/20 16:32 07/28/20 20:16 07/29/20 07:29 07/29/20 07:55 Glucose (Fingerstick) 126 mg/dL (70-99) 137 mg/dL (70-99) 124 mg/dL (70-99) White Blood Count 5.6 x10^3/uL (4.0-11.0) Red Blood Count 2.65 x10^6/uL (3.50-5.40) Hemoglobin 7.9 g/dL (12.0-15.5) Hematocrit 23.8 % (36.0-47.0) Mean Corpuscular Volume 90 fL (79-100) Mean Corpuscular Hemoglobin 30 pg (25-35) Mean Corpuscular Hemoglobin Concent 33 g/dL (31-37) Red Cell Distribution Width 17.3 % (11.5-14.5) Platelet Count 238 x10^3/uL (140-400) Neutrophils (%) (Auto) 79 % (31-73) Lymphocytes (%) (Auto) 11 % (24-48) Monocytes (%) (Auto) 9 % (0-9) Eosinophils (%) (Auto) 1 % (0-3) Basophils (%) (Auto) 0 % (0-3) Neutrophils # (Auto) 4.4 x10^3/uL (1.8-7.7) Lymphocytes # (Auto) 0.6 x10^3/uL (1.0-4.8) Monocytes # (Auto) 0.5 x10^3/uL (0.0-1.1) Eosinophils # (Auto) 0.0 x10^3/uL (0.0-0.7) Basophils # (Auto) 0.0 x10^3/uL (0.0-0.2) Sodium Level 135 mmol/L (136-145) Potassium Level 3.6 mmol/L (3.5-5.1) Chloride Level 101 mmol/L (98-107) Carbon Dioxide Level 24 mmol/L (21-32) Anion Gap 10 (6-14) Blood Urea Nitrogen 13 mg/dL (7-20) Creatinine 0.8 mg/dL (0.6-1.0) Estimated GFR (Cockcroft-Gault) 86.3 Glucose Level 128 mg/dL (70-99) Calcium Level 8.5 mg/dL (8.5-10.1) Test 07/29/20 11:33 Glucose (Fingerstick) 138 mg/dL (70-99) Assessment and Plan Assessmemt and Plan Problems Medical Problems: (1) Delirium Status: Acute (2) Sepsis Status: Acute (3) UTI (urinary tract infection) Status: Acute Comment Review of Relevant I have reviewed the following items stephen (where applicable) has been applied. Medications: Current Medications Medications (Trade) Dose Ordered Sig/Bri Route PRN Reason Start Time Stop Time Status Last Admin Dose Admin Ceftriaxone Sodium (Rocephin) 2 gm Q24H IVP 07/28/20 18:00 07/28/20 17:33 Tramadol HCl (Ultram) 50 mg PRN Q6HRS PRN PO MODERATE-SEVERE PAIN 07/29/20 11:45 07/29/20 11:53 Justifications for Admission Other Justification ISABEL AMAYA MD Jul 29, 2020 12:53
[2020-07-29 15:00] VITALS: BP 128/64
[2020-07-29] MEDS: cefTRIAXone IV Push 2 GM VIAL. IVP SCH (17:04)
[2020-07-29 19:00] VITALS: BP 104/68
[2020-07-29 22:41] VITALS: BP 187/70
[2020-07-29] MEDS: LATANOPROST 0.005% OPHTH SOLUTION 2.5ML BOTTLE. OU SCH (23:21)
[2020-07-30] MEDS: traMADol 50 MG TABLET PO PRN ×2 (01:09→09:44)
[2020-07-30] MEDS: IV RINGERS,LACTATED 1000ML 1,000 ML IV SCH ×3 (01:16→21:16)
[2020-07-30 02:51] VITALS: BP 169/72
[2020-07-30 06:02] LABS: BASO % 0 % (0-3); EOS # 0.1 x10^3/uL (0.0-0.7); EOS % 2 % (0-3); HEMATOCRIT 22.2 % (36.0-47.0); HEMOGLOBIN 7.3 g/dL (12.0-15.5); LYMPH # 0.9 x10^3/uL (1.0-4.8); LYMPH % 13 % (24-48); MEAN CORPUSCULAR HEMOGLOBIN 30 pg (25-35); MEAN CORPUSCULAR HGB CONC 33 g/dL (31-37); MEAN CORPUSCULAR VOLUME 91 fL (79-100); MONO # 0.7 x10^3/uL (0.0-1.1); MONO % 11 % (0-9); NEUT # 5.2 x10^3/uL (1.8-7.7); NEUT % 74 % (31-73); PLATELET COUNT 285 x10^3/uL (140-400); RED BLOOD COUNT 2.44 x10^6/uL (3.50-5.40); RED CELL DISTRIBUTION WIDTH 17.6 % (11.5-14.5)
[2020-07-30 06:18] LABS: CREATININE 0.7 mg/dL (0.6-1.0); GFR 100.7
[2020-07-30 07:00] VITALS: BP 155/60
[2020-07-30] MEDS: INSULIN LISPRO 300 UNITS/3 ML VIAL. SQ SCH ×3 (08:00→17:00)
[2020-07-30] MEDS: DORZOLAMIDE 2% OPHTH SOLUTION 10ML BOTTLE. OU SCH ×2 (08:42→21:02)
[2020-07-30] MEDS: METOPROLOL SUCC 24HR ER 25 MG TAB.ER.24H. PO SCH (08:43)
[2020-07-30] MEDS: PANTOPRAZOLE 40 MG TABLET.DR. PO SCH (08:43)
[2020-07-30] MEDS: NICOTINE 7MG PATCH. TD SCH (08:43)
[2020-07-30] MEDS: FOLIC ACID 1 MG TABLET. PO SCH (08:43)
[2020-07-30] MEDS: FERROUS SULFATE 325 MG TABLET. PO SCH (08:44)
[2020-07-30] MEDS: ENOXAPARIN 40 MG/0.4 ML SYRINGE. SQ SCH (08:44)
--- NOTE | 2020-07-30 09:33 | PDOC ---
Infectious Disease Note Subjective: Subjective Feeling better no complaints Denies F/N/V/D Vital Signs: Vital Signs Vital Signs Date Time Temp Pulse Resp B/P (MAP) Pulse Ox O2 Delivery O2 Flow Rate FiO2 07/30/20 08:43 70 155/60 07/30/20 07:00 98.7 17 97 Room Air 98.7 Physical Exam: PHYSICAL EXAM GENERAL: Propped up in bed, alert and smiling. HEENT: Normal conjunctivae, coated tongue, + dentures. NECK: Supple. No JVP, no lymphadenopathy. LUNGS: Clear. HEART: S1, S2 regular. ABDOMEN: Obese, soft, nontender. : no Moore - No CVA tenderness EXTREMITIES: No edema or cyanosis. SKIN: No signs of rash BACK: There is no CVA tenderness. NEUROLOGIC: The patient is alert, communicative, forgetful PIV looks ok Medications: Inpatient Meds: Medications reviewed. Labs: Lab Laboratory Tests Test 07/29/20 11:33 07/29/20 16:33 07/29/20 18:59 07/30/20 04:50 Glucose (Fingerstick) 138 mg/dL (70-99) 117 mg/dL (70-99) 140 mg/dL (70-99) White Blood Count 7.0 x10^3/uL (4.0-11.0) Red Blood Count 2.44 x10^6/uL (3.50-5.40) Hemoglobin 7.3 g/dL (12.0-15.5) Hematocrit 22.2 % (36.0-47.0) Mean Corpuscular Volume 91 fL (79-100) Mean Corpuscular Hemoglobin 30 pg (25-35) Mean Corpuscular Hemoglobin Concent 33 g/dL (31-37) Red Cell Distribution Width 17.6 % (11.5-14.5) Platelet Count 285 x10^3/uL (140-400) Neutrophils (%) (Auto) 74 % (31-73) Lymphocytes (%) (Auto) 13 % (24-48) Monocytes (%) (Auto) 11 % (0-9) Eosinophils (%) (Auto) 2 % (0-3) Basophils (%) (Auto) 0 % (0-3) Neutrophils # (Auto) 5.2 x10^3/uL (1.8-7.7) Lymphocytes # (Auto) 0.9 x10^3/uL (1.0-4.8) Monocytes # (Auto) 0.7 x10^3/uL (0.0-1.1) Eosinophils # (Auto) 0.1 x10^3/uL (0.0-0.7) Basophils # (Auto) 0.0 x10^3/uL (0.0-0.2) Creatinine 0.7 mg/dL (0.6-1.0) Estimated GFR (Cockcroft-Gault) 100.7 Test 07/30/20 06:56 Glucose (Fingerstick) 108 mg/dL (70-99) Objective: Assessment: Ecoli sepsis, 07/26. E. coli pansensitive UTI, POA UC neg, was on abx Fever improved Leukocytosis, better Diabetes. Hypertension. Plan: Plan of Care Rocephin- 07/28 was on zosyn When ready for dc can transition to cefdinir 300 mg po bid for 10 days Probiotics uc neg Monitor lab values and temp Supportive care SHANNAN COLLADO MD Jul 30, 2020 09:33
--- NOTE | 2020-07-30 09:54 | SNU/HH DC ---
DISCHARGE ORDERS DISCHARGE INFORMATION: FINAL DIAGNOSIS Problems Medical Problems: (1) Delirium Status: Acute (2) Sepsis Status: Acute (3) UTI (urinary tract infection) Status: Acute CONDITION ON DISCHARGE: Stable CODE STATUS: Code Status: Full HALF-WAY: SNF STAY <30 DAYS: Yes HOSPICE: HOSPICE: No HOSPICE EVAL & TREAT: No LTAC: ADMIT TO LTAC: No POST DISCHARGE ORDERS: DIET AFTER DISCHARGE: Cardiac TREATMENT/EQUIPMENT ORDERS: Physical Therapy For: Evalulation/Treatment Occupational Therapy For: Evaluation/Treatment DISCHARGE MEDICATIONS: Home Meds Reported Medications Latanoprost (XALATAN) 2.5 Ml Drops, 1 DROP OU QHS for GLAUCOMA, ML 07/26/20 Dorzolamide Hcl (DORZOLAMIDE HCL) 10 Ml Drops, 1 DROP EACHEYE BID for mac degeneration, #30 ML 0 Refills 07/26/20 [prednisone] No Conflict Check 07/26/20 Metoprolol Succinate (METOPROLOL SUCCINATE ( XL )) 25 Mg Tab.er.24h, 1 TAB PO DAILY for htn, #30 TAB 5 Refills 07/26/20 Furosemide (LASIX) 20 Mg Tablet, 1 TAB PO DAILY for diuretic for 30 Days, #30 TAB 0 Refills 07/26/20 Folic Acid (FOLIC ACID) 0.4 Mg Tablet, 0.4 MG PO DAILY for SUPPLEMENT, TAB 07/26/20 Ferrous Sulfate (IRON) 325 Mg Tablet, 1 TAB PO DAILY for anemia for 30 Days, #30 TAB 0 Refills 07/26/20 Lisinopril (LISINOPRIL) 20 Mg Tablet, 1 TAB PO DAILY for htn, #30 TAB 5 Refills 07/26/20 [methotrexate] No Conflict Check 07/26/20 Pantoprazole Sodium (PROTONIX) 20 Mg Tablet.dr, 1 TAB PO DAILY for gerd, #30 TAB 07/26/20 Metformin Hcl (METFORMIN HCL) 500 Mg Tablet, 500 MG PO DAILY for ANTI-DIABETIC, TAB 0 Refills 07/26/20 Gabapentin (GABAPENTIN) 600 Mg Tablet, 100 MG PO TID for NEUROGENIC PAIN, TAB 07/26/20 PRAVEEN BURDEN III DO Jul 30, 2020 09:54
--- NOTE | 2020-07-30 10:20 | NUR ---
SW following. Discussed with RN, pt from home with daughter, room air, ada diet, rapid COVID0-19 negative. Note left on SW desk over the weekend stating pt's daughter changed her mind and wants pt to go to [facility] now (not [facility]). SW faxed referral to [facility], pt accepted pending insurance auth. URVASHI will continue to follow.
[2020-07-30 11:00] VITALS: BP 151/71
--- NOTE | 2020-07-30 11:04 | DS ---
ADMISSION DIAGNOSES: Sepsis, urinary tract infection, metabolic encephalopathy, delirium. DISCHARGE DIAGNOSES: Resolving sepsis, resolving urinary tract infection, resolving delirium, neuropathy, gastroesophageal reflux disease, glaucoma, hypertension, diabetes. HOSPITAL COURSE: The patient is a pleasant elderly female who presented with some mental status changes, was noted to have a metabolic encephalopathy from UTI and sepsis. She was admitted. We gave her IV antibiotics and IV fluids. We consulted Infectious Disease. Today, I saw her and examined her. The daughter was present as well. The patient is at her baseline. Daughter feels like she is at her baseline as well. She would like to get her to assisted at [facility], if possible we plan to discharge to assisted. DISPOSITION: jail at [facility]. ACTIVITIES: As tolerated. DIET: Low sodium. DISCHARGE MEDICATIONS: We will continue her home meds, which include iron 325 a day, folic acid 0.4 a day, Lasix 20 a day, gabapentin 600 a day, Xalatan eyedrops 1 drop both eyes at bedtime, lisinopril 20 a day, metformin 500 b.i.d., dorzolamide eyedrops 1 drop both eyes b.i.d., metoprolol 25 a day, Protonix 40 a day and we are going to continue her Rocephin 1 gram IV q.24. Total time 34 minutes. [facility] [place]: KADE/julio TID: [id number]
[2020-07-30] MEDS: LACTOBACILLUS RHAMNOSUS GG 1 CAPSULE. PO SCH ×2 (11:38→21:01)
[2020-07-30 15:00] VITALS: BP 142/61
[2020-07-30] MEDS: cefTRIAXone IV Push 2 GM VIAL. IVP SCH (18:21)
[2020-07-30 19:00] VITALS: BP 131/56
[2020-07-30] MEDS: LATANOPROST 0.005% OPHTH SOLUTION 2.5ML BOTTLE. OU SCH (21:14)
[2020-07-30 22:44] VITALS: BP 138/62
[2020-07-31] MEDS: ACETAMINOPHEN 325 MG TABLET. PO PRN (01:49)
[2020-07-31 02:59] VITALS: BP 166/64
[2020-07-31] MEDS: PANTOPRAZOLE 40 MG TABLET.DR. PO SCH (06:02)
[2020-07-31] MEDS: traMADol 50 MG TABLET PO PRN (06:04)
[2020-07-31 07:00] VITALS: BP 146/71
--- NOTE | 2020-07-31 07:46 | PDOC ---
Infectious Disease Note Subjective: Subjective Feeling better no complaints Denies F/N/V/D Vital Signs: Vital Signs Vital Signs Date Time Temp Pulse Resp B/P (MAP) Pulse Ox O2 Delivery O2 Flow Rate FiO2 07/31/20 06:34 18 95 Room Air 2.0 07/31/20 02:59 99.4 87 166/64 (98) 99.4 Physical Exam: PHYSICAL EXAM GENERAL: Propped up in bed, alert and smiling. HEENT: Normal conjunctivae, coated tongue, + dentures. NECK: Supple. No JVP, no lymphadenopathy. LUNGS: Clear. HEART: S1, S2 regular. ABDOMEN: Obese, soft, nontender. : no Moore - No CVA tenderness EXTREMITIES: No edema or cyanosis. SKIN: No signs of rash BACK: There is no CVA tenderness. NEUROLOGIC: The patient is alert, communicative, forgetful PIV looks ok Medications: Inpatient Meds: Medications reviewed. Labs: Lab Laboratory Tests Test 07/30/20 11:38 07/30/20 16:45 07/30/20 18:52 07/31/20 07:24 Glucose (Fingerstick) 101 mg/dL (70-99) 120 mg/dL (70-99) 146 mg/dL (70-99) 121 mg/dL (70-99) Objective: Assessment: Ecoli sepsis, 07/26. E. coli pansensitive UTI, POA UC neg, was on abx Fever improved Leukocytosis, better Diabetes. Hypertension. Plan: Plan of Care Rocephin while here When ready for dc can transition to cefdinir 300 mg po bid for 10 days Probiotics uc neg Supportive care awaiting placement D/W SHANNAN LOPEZ MD Jul 31, 2020 07:46
[2020-07-31] MEDS: INSULIN LISPRO 300 UNITS/3 ML VIAL. SQ SCH ×2 (08:00→12:00)
[2020-07-31] MEDS: IV RINGERS,LACTATED 1000ML 1,000 ML IV SCH (08:34)
[2020-07-31] MEDS: ENOXAPARIN 40 MG/0.4 ML SYRINGE. SQ SCH (08:35)
[2020-07-31] MEDS: FERROUS SULFATE 325 MG TABLET. PO SCH (08:35)
[2020-07-31] MEDS: METOPROLOL SUCC 24HR ER 25 MG TAB.ER.24H. PO SCH (08:35)
[2020-07-31] MEDS: LACTOBACILLUS RHAMNOSUS GG 1 CAPSULE. PO SCH (08:35)
[2020-07-31] MEDS: FOLIC ACID 1 MG TABLET. PO SCH (08:35)
[2020-07-31] MEDS: NICOTINE 7MG PATCH. TD SCH (08:35)
[2020-07-31] MEDS: DORZOLAMIDE 2% OPHTH SOLUTION 10ML BOTTLE. OU SCH (08:36)
[2020-07-31 10:29] VITALS: BP 183/73
--- NOTE | 2020-07-31 11:08 | SNU/HH DC ---
DISCHARGE WITH HOME HEALTH DISCHARGE INFORMATION: Final Diagnosis: Problems Medical Problems: (1) Delirium Status: Acute (2) Sepsis Status: Acute (3) UTI (urinary tract infection) Status: Acute Condition on Discharge: Stable CODE STATUS: Code Status: Full HOME HEALTH: Face to Face: I certify this patient is under my care and that I, or a nurse practitioner or physician's perioperative assistant working with me, had a face to face encounter that meets the physician face to face encounter requirements with this patient on []. Medical Complications: Other (Recent UTI with metabolic encephalopathy) [facility] For: Assess & Educate Safety RN For Eval/Treatment: Yes Physical Therapy For: Evalulation/Treatment Occupational Therapy For: Evaluation/Treatment Speech Language Pathology For: Evaluation/Treatment Home Health Aide For: Self-care MECHANICAL DETAILER For: Community Resources Pt Meets Homebound Status: Poor coordination w/ amb. POST DISCHARGE ORDERS: DIET AFTER DISCHARGE: Cardiac CERTIFICATION STATEMENT: Certification Statement: Certification Statement: Based on the above finding, I certify that this patient is confined to the home and needs intermittent mcc care, physical therapy and/or speech therapy, or continues to need occupational therapy.~ This patient is under my care, and I have initiated the establishment of the plan of care.~ This patient will be followed by myself or a community physician who will periodically review the plan of care. Home Meds Reported Medications Latanoprost (XALATAN) 2.5 Ml Drops, 1 DROP OU QHS for GLAUCOMA, ML 07/26/20 Dorzolamide Hcl (DORZOLAMIDE HCL) 10 Ml Drops, 1 DROP EACHEYE BID for mac degeneration, #30 ML 0 Refills 07/26/20 [prednisone] No Conflict Check 07/26/20 Metoprolol Succinate (METOPROLOL SUCCINATE ( XL )) 25 Mg Tab.er.24h, 1 TAB PO DAILY for htn, #30 TAB 5 Refills 07/26/20 Furosemide (LASIX) 20 Mg Tablet, 1 TAB PO DAILY for diuretic for 30 Days, #30 TAB 0 Refills 07/26/20 Folic Acid (FOLIC ACID) 0.4 Mg Tablet, 0.4 MG PO DAILY for SUPPLEMENT, TAB 07/26/20 Ferrous Sulfate (IRON) 325 Mg Tablet, 1 TAB PO DAILY for anemia for 30 Days, #30 TAB 0 Refills 07/26/20 Lisinopril (LISINOPRIL) 20 Mg Tablet, 1 TAB PO DAILY for htn, #30 TAB 5 Refills 07/26/20 [methotrexate] No Conflict Check 07/26/20 Pantoprazole Sodium (PROTONIX) 20 Mg Tablet.dr, 1 TAB PO DAILY for gerd, #30 TAB 07/26/20 Metformin Hcl (METFORMIN HCL) 500 Mg Tablet, 500 MG PO DAILY for ANTI-DIABETIC, TAB 0 Refills 07/26/20 Gabapentin (GABAPENTIN) 600 Mg Tablet, 100 MG PO TID for NEUROGENIC PAIN, TAB 07/26/20 PRAVEEN BURDEN III DO Jul 31, 2020 11:08
--- NOTE | 2020-07-31 11:17 | NUR ---
SS following up with discharge planning. SS reviewed pt chart and discussed with pt RN. Pt is currently on room air. COVID19 negative. PT/OT recommended assisted unit. Pt was accepted at [facility]. [employer] declined insurance authorization for assisted unit. Dr. Wiley discussed with pt's daughter, Doreen, . Pt's daughter agreeable to home with home healthcare. SS contacted pt's daughter and discussed discharge planning and home healthcare. Pt's daughter reported having no preference of company and was agreeable to [facility], ; fax [phone]. Referral sent to [facility]. Discharge orders for home healthcare received. SS will continue to follow for discharge planning.
--- NOTE | 2020-07-31 14:00 | NUR ---
Discharge Note: MALINDA ROSE [address] Discharge instructions and discharge home medications reviewed with Patient and a copy given. Education given over UTI and cefdinir. All questions have been answered and understanding verbalized. The following instructions and handouts were given: Follow up appointment discussed. Discontinued IV line and telemetry. Patient discharged to Home with Homehealth.
== END 2020-07-31 13:50 | disposition home health service (06) | DRG 871 ==
LOC: ER 00:27 → 6 SOUTH 01:42
PROVIDERS: ADMIT Internal Medicine; ATTEND Internal Medicine
DX: A41.51 Sepsis due to Escherichia coli [E. coli] (principal); G93.41 Metabolic encephalopathy; E87.2 Acidosis; N39.0 Urinary tract infection, site not specified; E11.40 Type 2 diabetes mellitus with diabetic neuropathy, unspecified; E87.5 Hyperkalemia; H40.9 Unspecified glaucoma; I11.0 Hypertensive heart disease with heart failure; I50.9 Heart failure, unspecified; K21.9 Gastro-esophageal reflux disease without esophagitis; M19.90 Unspecified osteoarthritis, unspecified site; Z86.73 Personal history of transient ischemic attack (TIA), and cerebral infarction without residual deficits; Z20.822 Contact with and (suspected) exposure to COVID-19
CPT/HCPCS: 36415; 71045; 76770; 80048; 80053; 81001; 82565; 82962; 83735; 85007; 85025; 87040; 87077; 87086; 87186; 87205; 87426; 96361; 96374; 96375; J0696; J1650; J1815; J1885; J2543; J3370; J3475; J7030; J7050; J7120; 97116-GP; 97530-GO; 97530-GP; 97535-GO; 99285-25; G0378

== ENCOUNTER → 2020-11-16 | Outpatient (CLI) | payer MEDICARE ==
[2020-10-19 11:30] VITALS: BP 84/64
[~2020-11-16] MED LIST: ACET325T21 PO; BUDE10.2 IH; DORZ10DR6 EACHEYE; DORZ10DR7 EACHEYE; EMPA10TA PO; FERR-36 PO; FERR240T2 PO; FOLI0.4T5 PO; FOLI0.8T5 PO; FURO-69 PO; GABA-585 PO; GABA600T7 PO; GABA800T5 PO; LATA2.5D2 OU; LISI20TA18 PO; METF500T16 PO; METO-239 PO; PANT20TA2 PO; PANT40TA77 PO; methotrexate; prednisone
--- NOTE | 2020-11-16 13:23 | PDOC1 ---
INITIAL PAIN CONSULT DATE OF SERVICE: DOS: DATE: 11/16/20 TIME: 13:16 CHIEF COMPLAINT: Chief Complaint: Low back and left lower extremity pain HISTORY OF PRESENT ILLNESS: 70-year-old female presents with severe pain in the low back and left lower extremity status post fall at home in her bathroom, patient waited about 1 week and then went to the emergency department at the [facility] and had x-rays and then was sent home and then recently was admitted via her primary care physician to rehab facility [facility], and has been there for the past 2 days. Patient reports that the rehab is just getting started really but she feels that it may be helpful patient is wearing a back brace as well. Patient is accompanied by her daughter who helps with her histo ry. Patient reports pain is low back and into the left lower extremity rating the posterior gluteus lateral thigh anterior thigh medial thigh medial lower leg and into the groin to some extent also into the foot and ankle on the left side medially patient reports is constant sharp throbbing can be stabbing in the back numbness and radiating the leg as well as aching in the back gets worse as the day goes on and with more activity. Patient reports it wakes her from sleep about 6-7 times a night can affect her bowel bladder control but no loss of continence just increased frequency patient reports it does affect ability to walk and using a walker which she has with her today as well. Patient is doing physical therapy currently and she is in rehab currently as well patient reports her disability rating 0-10 10 being worst is an 8 with social activity 5 with Lexapro activities and 10 all other categories self-care sexual behavior occupation recreation and family home responsibilities. He did have a CT of the lumbar spine showing moderate appearing superior endplate compression deformity L4 with lucent fracture lines cortical buckling and minimal communication along the anterior superior endplate no evidence of healing changes along the fracture line retropulsion of the superior endplate and commendation with ligamentum flavum thickening and facet arthrosis result in marked central spinal canal stenosis at L3-4. PAST MEDICAL HISTORY: PMH: Hypertension, type 2 diabetes, shortness of breath, arthritis, osteoporosis, supraventricular tachycardia, anemia, cataracts, chronic bronchitis PREVIOUS SURGERIES: Past Surgical Hx: , hysterectomy, bilateral cataract extractions CURRENT MEDICATIONS: Current Meds: Active Scripts Medications Dose Route/Sig Max Daily Dose Days Date Category Xalatan (Latanoprost) 2.5 Ml Drops 1 Drop OU QHS 07/26/20 Reported Dorzolamide Hcl 10 Ml Drops 1 Drop EACHEYE BID 07/26/20 Reported [prednisone] 07/26/20 Reported Metoprolol Succinate ( Xl ) (Metoprolol Succinate) 25 Mg Tab.er.24h 1 Tab PO DAILY 07/26/20 Reported Lasix (Furosemide) 20 Mg Tablet 1 Tab PO DAILY 30 07/26/20 Reported Folic Acid 0.4 Mg Tablet 0.4 Mg PO DAILY 07/26/20 Reported Iron (Ferrous Sulfate) 325 Mg Tablet 1 Tab PO DAILY 30 07/26/20 Reported Lisinopril 20 Mg Tablet 1 Tab PO DAILY 07/26/20 Reported [methotrexate] 07/26/20 Reported Protonix (Pantoprazole Sodium) 20 Mg Tablet.dr 1 Tab PO DAILY 07/26/20 Reported Metformin Hcl 500 Mg Tablet 500 Mg PO DAILY 07/26/20 Reported Gabapentin 600 Mg Tablet 100 Mg PO TID 07/26/20 Reported ALLERGIES; Allergies: Coded Allergies: No Known Drug Allergies (Unverified , 10/19/20) FAMILY HISTORY: Family Hx: Diabetes SOCIAL HISTORY: Social Hx: Patient is under alcohol does not smoke says any illegal illicit or recreational drugs lives with her daughter is lives locally came to the [place] and currently is residing at the rehabilitation facility. REVIEW OF SYSTEMS: ROS: Positive for those items mentioned in history of present illness, all systems are reviewed, otherwise negative ,and are complete full and well-documented on patient's chart. PHYSICAL EXAM: VS: Blood pressure is 120/61 pulse 75 respirations 24 temperature 98.4 F height 5 foot 1 inch, weight is 125 pounds PE: PHYSICAL EXAMINATION: GENERAL: The patient is awake, alert, oriented, appropriate, very pleasant in demeanor, patient [place] by her daughter. HEENT: Shows normocephalic, atraumatic. Extraocular movements are intact and symmetrical. Oral cavity: Mucous membranes moist and pink. NECK: Shows anterior throat supple without palpable lymphadenopathy noted. Swallow reflex symmetrical. CHEST: Shows normal on inspection. Breath sounds are clear bilaterally, distant but no rales or rhonchi. HEART: Shows S1, S2 clear. No murmurs auscultated. ABDOMEN: Soft, nontender, nondistended. No palpable organomegaly is noted. No rebound or guarding demonstrated. BACK: Shows spine grossly in the midline. Normal-appearing cervical lordotic curvature. There is increased thoracic kyphosis, some flattening of the lumbar lordotic curvature. Lumbar paraspinous muscles show symmetrical on inspection, on palpation shows some moderate tenderness diffusely throughout the upper, middle and lower distribution of the paraspinous muscles bilaterally and also into the lower thoracic paraspinous musculature, firm and tender, but without specific trigger points, without radiation of pain. Patient shows significant tenderness with the palpation over the spinous processes in the L4-L5 region without radiation. The patient has good rotational motion of the lumbar spine, both laterally as well as extension and flexion without significant difficulty. No tenderness over the spinous processes, sacrum or sacroiliac regions. EXTREMITIES: Lower extremities show deep tendon reflexes 1+ in the patellar and tendo calcaneus tendons. Motor exam is 5 on a scale of 5 with right dorsiflexion, extension, quadriceps and hamstring flexion and 4/5 on the left. Peripheral pulses are 1 posterior tibial. No peripheral edema is noted bilaterally. Lower extremities are warm and dry to touch, equal in color and appearance. SKIN: Shows warm and dry, good turgor. No edema. No sores, rashes or bruising throughout. IMPRESSION: Impression: 70-year-old female with history of fall approximately 1 month ago with subsequent pain low back left lower extremity radicular fashion following L3-4 dermatomal distribution. MRI scan lumbar spine as noted showing L4 compression fracture and retropulsion into the L3-4 nerve root on the left with stenosis. Arthritis Hypertension Type 2 diabetes next Plan: Options were discussed the patient including conservative management continued physical therapies and interventional techniques. As patient is currently in rehab she would like to pursue interventional techniques as well. We discussed a lumbar epidural steroid injection with the patient and her daughter using prescription as well as anatomical models to describe the procedure. Patient will wait for preauthorization with her insurance provider once this is obtained, will plan on translaminar approach L3-4 level lumbar epidural steroid injection with fluoroscopic guidance. Meantime patient continue with rehab treatment as ongoing. ARIANA BARNES MD Nov 16, 2020 13:23
== END | disposition home or self-care (01) ==
LOC: PNCL 12:17
PROVIDERS: ATTEND Anesthesiology
DX: M79.605 Pain in left leg (principal); M54.59 Other low back pain; I10 Essential (primary) hypertension; E11.9 Type 2 diabetes mellitus without complications; M19.90 Unspecified osteoarthritis, unspecified site; M81.0 Age-related osteoporosis without current pathological fracture; K21.9 Gastro-esophageal reflux disease without esophagitis; D64.9 Anemia, unspecified; Z87.891 Personal history of nicotine dependence; Z79.84 Long term (current) use of oral hypoglycemic drugs; Z79.899 Other long term (current) drug therapy; Z98.890 Other specified postprocedural states
CPT/HCPCS: 99214; G0463

== ENCOUNTER → 2020-12-04 | Outpatient (CLI) | payer MEDICARE ==
[2020-10-19 11:30] VITALS: BP 84/64
[~2020-12-04] MED LIST changes: +IOHEXOL 180 MG/ML 10 ML VIAL. ONE; +methylPREDNISolone ACETATE 40 MG/ML VIAL. ONE; +methylPREDNISolone ACETATE 80 MG/ML VIAL. ONE
--- NOTE | 2020-12-04 11:28 | PDOC ---
Progress Note - Pain Clinic Date of Service: DOS: DATE: 12/04/20 TIME: 11:26 Diagnosis: Dx: Lumbar radiculopathy with lumbar spinal stenosis and lumbar compression fracture L4 History or Present Illness: HPI: 70-year-old female returns for follow-up with complaints of low back and left lower extremity pain into the posterior gluteus lateral thigh anterior thigh medial thigh medial knee and calf patient reports is worse with standing walking is using a wheelchair for most of her ambulatory needs at this time patient reports an aching pain sharp and shooting and radiating can be severe at times with attempted weightbearing patient reports significant pain in the back as well. Patient rates her pain a 9 on scale 10 is worst least and average of the past week is a 9 today. Patient reports much worse with trying to move on her feet transfer from sitting to standing and vice versa wakes her from sleep about every 4-5 hours. Physical Exam: VS: Blood pressure is 90/54 pulse 83 respirations 20 temperature 98.1 F height 5 foot 1 his weight is 115 pounds PE: PHYSICAL EXAMINATION: GENERAL: The patient is awake, alert, oriented, appropriate, very pleasant in demeanor HEENT: Shows normocephalic, atraumatic. Extraocular movements are intact and symmetrical. Oral cavity: Mucous membranes moist and pink. NECK: Shows anterior throat supple without palpable lymphadenopathy noted. Swallow reflex symmetrical. CHEST: Shows normal on inspection. Breath sounds are clear bilaterally, distant but no rales or rhonchi. HEART: Shows S1, S2 clear. No murmurs auscultated. ABDOMEN: Soft, nontender, nondistended. No palpable organomegaly is noted. BACK: Shows spine grossly in the midline. Normal-appearing cervical lordotic curvature. There is slightly increased thoracic kyphosis, some minor flattening of the lumbar lordotic curvature. Lumbar paraspinous muscles show symmetrical on inspection, on palpation shows some moderate tenderness diffusely throughout the upper, middle and lower distribution of the paraspinous muscles without specific trigger points, without radiation of pain. The patient has good rotational motion of the lumbar spine, both laterally as well as extension and flexion without significant difficulty. EXTREMITIES: Lower extremities show deep tendon reflexes 1+ in the patellar and tendo calcaneus tendons. Motor exam is 5 on a scale of 5 with right d orsiflexion, extension, quadriceps and hamstring flexion and 4/5 on the left. Peripheral pulses are 1 posterior tibial. No peripheral edema is noted bilaterally. Lower extremities are warm and dry to touch, equal in color and appearance. SKIN: Shows warm and dry, good turgor. No edema. No sores, rashes or bruising throughout. Procedure: Procedure: Options discussed with patient. Patient chart reviews her current medication regimen updated current review of systems updated today as well. We will proceed with a lumbar epidural steroid injection today with fluoroscopic guidance. Risks were discussed including but not limited to: Bleeding, infection, possibility of epidural hematoma and subsequent neurological compromise, dural puncture, headaches, spinal cord and/or nerve damage, side effects of steroid medication, and poor results regarding pain control. Patient understands and wished to proceed. Patient return to clinic in approximate 2 weeks for follow-up, was counseled return appointment, typical, and side effects to be aware of. Medication Injected: Med Injected: Procedure is lumbar epidural steroid injection under local anesthetic using sterile prep and drape at the L3-4 level using C-arm fluoroscopic guidance in both AP and lateral views medications injected is 120 mg Depo-Medrol +10mL preservative-free normal saline and 2 mL contrast- condition at discharge is stable patient tolerated procedure well had no complications. Condition at Discharge: Condition at Discharge: Condition at discharge is stable, patient tolerated procedure well and had no complications. ARIANA BARNES MD Dec 04, 2020 11:28
--- NOTE | 2020-12-04 11:29 | PDOC4 ---
Procedure Note: ICD 10 Code: ICD 10 Code: M54.16 M4 8.06 Procedure Note: Patient was consented for lumbar epidural steroid injection with fluoroscopic guidance. Risks were discussed including but not limited to: Bleeding, infection, possibility of epidural hematoma and subsequent neurological compromise, dural puncture, headaches, spinal cord and/or nerve damage, side effects of steroid medication, and poor results regarding pain control. Patient understands and wished to proceed. Procedure is lumbar epidural steroid injection under local anesthetic using sterile prep and drape at the L3-4 level using C-arm fluoroscopic guidance in both AP and lateral views medications injected is 120 mg Depo-Medrol +10mL preservative-free normal saline and 2 mL contrast- condition at discharge is stable patient tolerated procedure well had no complications. ARIANA BARNES MD Dec 04, 2020 11:29
== END | disposition home or self-care (01) ==
LOC: PNCL 10:22
PROVIDERS: ATTEND Anesthesiology
DX: M48.061 Spinal stenosis, lumbar region without neurogenic claudication (principal); M54.16 Radiculopathy, lumbar region; M48.56XA Collapsed vertebra, not elsewhere classified, lumbar region, initial encounter for fracture; I10 Essential (primary) hypertension; K21.9 Gastro-esophageal reflux disease without esophagitis; M19.90 Unspecified osteoarthritis, unspecified site; E11.9 Type 2 diabetes mellitus without complications; Z87.891 Personal history of nicotine dependence; Z79.84 Long term (current) use of oral hypoglycemic drugs; Z79.899 Other long term (current) drug therapy; Z98.890 Other specified postprocedural states
CPT/HCPCS: 62323; J1030; J1040; Q9965

== ENCOUNTER → 2020-12-28 | Outpatient (CLI) | payer MEDICARE ==
[2020-10-19 11:30] VITALS: BP 84/64
[~2020-12-28] MED LIST changes: -IOHEXOL 180 MG/ML 10 ML VIAL. ONE; -methylPREDNISolone ACETATE 40 MG/ML VIAL. ONE; -methylPREDNISolone ACETATE 80 MG/ML VIAL. ONE
--- NOTE | 2020-12-28 11:18 | PDOC ---
Progress Note - Pain Clinic Date of Service: DOS: DATE: 12/28/20 TIME: 11:14 Diagnosis: Dx: Lumbar radiculopathy with lumbar spinal stenosis lumbar compression fractureL4 History or Present Illness: HPI: 70-year-old female returns for follow-up status post lumbar epidural straight injection x1. Patient reports doing much better about 70% overall with pain in the low back and left lower extremity is resolving significantly still some pain rating the anterior thigh and anterior aspect of the medial thigh only present with weightbearing standing and walking patient reports she has been increasing activity with greater ease and comfort is been walking greater distances also does not walk a lot she is still using a wheelchair when she can because of the pain in the back and the left leg but much improved patient reports been sleeping better at night does not awaken her from sleep and has no increased weakness in the left leg as well. Patient rates her pain as a 5 on a scale of 10 at its worst average and a 2 at its least and is a 2 today. Patient reports when she is sitting she has almost no pain when she standing walking however the pain returns although it is much reduced from that of previous. Patient reports no bowel or bladder incontinence describes pain as dull in the back tingling in the back some tingling in the leg as well with standing on and off in intensity. Patient taking gabapentin at night and we discussed increasing that to 200 mg instead of 100 as may help some of the tingling in her hands and feet as well as her radiculopathy. Physical Exam: VS: Blood pressure is 136/58 pulse 69 respirations 18 temperature 98.4 F weight is 122 pounds PE: PHYSICAL EXAMINATION: GENERAL: The patient is awake, alert, oriented, appropriate, very pleasant in demeanor, patient accompanied by her caregiver. HEENT: Shows normocephalic, atraumatic. Extraocular movements are intact and symmetrical. Oral cavity: Mucous membranes moist and pink. NECK: Shows anterior throat supple without palpable lymphadenopathy noted. Swallow reflex symmetrical. CHEST: Shows normal on inspection. Breath sounds are clear bilaterally, distant but no rales or rhonchi. HEART: Shows S1, S2 clear. No murmurs auscultated. ABDOMEN: Soft, nontender, nondistended, obese. No palpable organomegaly is noted. BACK: Shows spine grossly in the midline. Normal-appearing cervical lordotic curvature. There is increased thoracic kyphosis, some flattening of the lumbar lordotic curvature. Patient wearing lumbar support brace on initial presentation. Lumbar paraspinous muscles show symmetrical on inspection, on palpation shows some moderate tenderness diffusely throughout the upper, middle and lower distribution of the paraspinous muscles bilaterally and also into the lower thoracic paraspinous musculature, firm and tender, but without specific trigger points, without radiation of pain. No tenderness over the spinous processes, sacrum or sacroiliac regions. EXTREMITIES: Lower extremities show deep tendon reflexes 1 in the patellar and tendo calcaneus tendons. Motor exam is 5 on a scale of 5 with right dorsiflexion, extension, quadriceps and hamstring flexion and 4/5 on the left. Peripheral pulses are 1+ posterior tibial. No peripheral edema is noted bilaterally. Lower extremities are warm and dry. SKIN: Shows warm and dry, good turgor. No edema. No sores, rashes or bruising throughout. Procedure: Procedure: Options were discussed with the patient. Patient chart was reviewed as her current medication regimen updated current review of systems updated today as well. We will preauthorize patient for a lumbar epidural steroid injection L3-4 level as she has clinical radiculopathy in L3-4 distribution on the left side. Patient about 70% improvement after the first injection with the pain returning now in a radicular fashion on the left in the L3-4 distribution. Once approved, patient will return to the clinic for translaminar approach with fluoroscopic guidance L3-4 lumbar epidural steroid injection. In the meantime, patient will continue with stretching and strength exercises as well as oral analgesics and gabapentin. Medication Injected: Med Injected: None Condition at Discharge: Condition at Discharge: Condition at discharge is stable. ARIANA BARNES MD Dec 28, 2020 11:18
== END | disposition home or self-care (01) ==
LOC: PNCL 10:29
PROVIDERS: ATTEND Anesthesiology
DX: M48.061 Spinal stenosis, lumbar region without neurogenic claudication (principal); M54.16 Radiculopathy, lumbar region; I10 Essential (primary) hypertension; K21.9 Gastro-esophageal reflux disease without esophagitis; M19.90 Unspecified osteoarthritis, unspecified site; E11.9 Type 2 diabetes mellitus without complications; Z79.84 Long term (current) use of oral hypoglycemic drugs; Z79.899 Other long term (current) drug therapy; Z98.890 Other specified postprocedural states; Z88.8 Allergy status to other drugs, medicaments and biological substances
CPT/HCPCS: 99212; G0463